=== PATIENT | male | born 1970 | race Caucasian/White ===

== ENCOUNTER 2018-02-28 14:54 | Inpatient (IN) | payer OTHER ==
[~2018-02-28] VITALS: Ht 177.8 cm; Wt 78.7 kg
--- NOTE | ~2018-02-28 | HC ---
[facility] [place] [address] CONSULTATION Name: WOJCIECH PITTS Room #: 244-P ADM IN M.R.#: [id number] Admission: 02/28/18 Attend Phys: Jaspal Ochoa MD Discharge: Date of : 72 Report #: [id number] THIS REPORT FOR: //name// CC: Jaspal Ochoa NO PCP REFERRING PHYSICIAN: Dr. Ochoa. REASON FOR REFERRAL: Cardiac arrest. HISTORY OF PRESENT ILLNESS: The patient is a 48-year-old white male who was brought to the emergency room, being found unresponsive, tachycardic. Pulmonary consultation was requested. A pulmonary consultation was called last evening. Case was discussed with nursing last evening. The patient was seen this morning. According to records, the patient was found to be in wide complex tachycardia. He was felt to be in ventricular tachycardia. Cardioversion was given by EMS. The patient was found to have a pulse. No CPR was given. He was transported to the emergency room. The patient was apparently found down. There was a gallon of water by the patient's side. No mention whether the patient had incontinence of urine or stool. The police has initially found the patient down when EMS was called. Currently, he is intubated, in normal sinus rhythm. He is requiring sedation due to restlessness and agitation. He is not alert or oriented. CT head was unremarkable. Chest x-ray shows clear lung oliver initially, then subsequently left lower lobe infiltrate, partial mild left upper lobe infiltrate. The patient was felt to have aspirated. Urine drug screen was normal. Otherwise, there are no family members. Not able to obtain much history. Therefore, past medical history, surgical history, allergies, medications, family history, and social history are unknown. Police are in the process of trying to locate family if possible. Service has also been involved. PHYSICAL EXAMINATION: GENERAL: He is now sedated. EEG has just been completed. VITAL SIGNS: Temperature initially was 107 degrees Fahrenheit. He has been cold and currently is 98.8 degrees Fahrenheit. Pulse is 80. Respiratory rate is 18. Blood pressure is 90/54 mmHg. The patient was hypotensive when he was seen in the emergency room. Saturation is 95%. HEENT: Normocephalic, atraumatic. NECK: Supple without any lymphadenopathy or thyromegaly. He is orally [address] [address] CONSULTATION Name: WOJCIECH PITTS Room #: 244-P [facility] IN M.R.#: [id number] Admission: 02/28/18 Attend Phys: Jaspal Ochoa MD Discharge: Date of : 72 Report #: [id number] intubated. CHEST: Breath sounds are clear anteriorly without any rales or wheezes. CARDIOVASCULAR: Normal S1, S2. No murmurs or gallop. There is no JVD. There is no carotid bruit. Pulses are 2+/4+ bilaterally. ABDOMEN: Soft, nontender, no organomegaly or masses felt. GENITOURINARY: Deferred. RECTAL: Deferred. EXTREMITIES: No cyanosis, clubbing, or edema. NEUROLOGIC: Initially found to be unresponsive, following resuscitation he has been quite restless and agitated, requiring sedation. He moves all extremities. LABORATORY DATA: As mentioned above. Chest x-ray shows clear lung oliver initially, now with a left lower lobe and left upper lobe infiltrates. ET tube is in appropriate position. NG tube is in appropriate position. CT head was unremarkable. Mild acute parasinusitis was noted. CT abdomen and pelvis showed marked colonic distention, fatty liver, lactic acid 2.5. Echocardiogram performed this morning showed normal ejection fraction, normal LV function, no pericardial effusion. Pulmonary pressure 35 mmHg. EKG shows no acute ischemic changes, low voltages, borderline prolonged QT interval. Electrolytes on admission showed a sodium 139, potassium 6.4, chloride 105, CO2 of 23, BUN is 20, creatinine is 2.2, this morning it is 1.6. WBC 8900, hemoglobin 14.2, platelets are normal. No evidence of bandemia. Eosinophil is mildly elevated. Troponin 0.3, CPK 1640. Arterial blood gas on admission revealed pH 7.44, pCO2 of 27, and pO2 of 164 on FiO2 100%. Urine drug screen again is negative. I do not find a serum alcohol level. IMPRESSION: 1. Apparent loss of consciousness in this 48-year-old white male with wide complex tachycardia, with subsequent ventricular tachycardia. He is febrile with a temperature of 107 degrees Fahrenheit. He was initially found unresponsive. Laboratory data shows hypokalemia with presumed acute kidney injury. Urine drug screen was negative. Initial CPK was normal at 140. Etiology is unclear, but suspect heat stroke resulting in loss of consciousness and perhaps tachycardia. This may explain his subsequent renal failure. 2. New left upper and lower lobe infiltrates. It has been confirmed the patient did vomit in the process of being evaluated in the ER. 3. Aspiration pneumonia. The patient should be treated for possible aspiration pneumonia. 4. Encephalopathy due to toxic and metabolic processes. 5. Dysrhythmias. The patient was felt to be in wide complex tachycardia with subsequent ventricular tachycardia. Please see comments below. 6. Renal insufficiency. Presume acute kidney injury; however, there is no history. Note that creatinine has improved with adequate urine output with IV fluids. 7. Hypokalemia due to renal failure, improving. 8. Hypotension, as mentioned due to above process, much improved. [facility] [address] [place] [address] CONSULTATION Name: WOJCIECH PITTS Room #: 244-P ADM IN M.R.#: [id number] Admission: 02/28/18 Attend Phys: Jaspal Ochoa MD Discharge: Date of : 72 Report #: [id number] 9. Elevated CPK, suspect some component of rhabdomyolysis. 10. Elevated troponin, related to above process with demand stress myocardium, echocardiogram being normal. Acute hypoxic respiratory failure due to above process including aspiration. RECOMMENDATION: We will continue mechanical ventilation, wean as clinical status improves. In terms of probable cardiac arrest and encephalopathy, the patient would have been a candidate for hypothermia protocol; however, according to records time has lapsed, being more than 6 hours since admission. Cardiology was consulted, but later after the patient was admitted. We would treat for presumed aspiration pneumonia with broad spectrum antibiotics, specifically to cover Gram-negative and anaerobes. DVT and GI prophylaxis recommended. Continue sedation for now given encephalopathy, restlessness and agitation. Neurology has been consulted. EEG has been performed. We will need to monitor serial CPKs, it appears to be on the rise with presumed rhabdomyolysis and renal failure. We will need to consult bilingual social worker and case management to help with identifying any family members if available. Thank you for this consultation. <ELECTRONICALLY SIGNED> By: Tomy Puri MD 03/06/18 1542 1138 MD bob Whitman
--- NOTE | ~2018-02-28 | O ---
[facility] [place] [address] OPERATIVE REPORT Name: WOJCIECH PITTS Room #: 244-P ADM IN M.R.#: [id number] Admission: 02/28/18 Attend Phys: Jaspal Ochoa MD Discharge: Date of : 72 Report #: [id number] THIS REPORT FOR: //name// CC: Jaspal Ochoa NO PCP PROCEDURE: Diagnostic bronchoscopy. CLINICAL HISTORY: A 48-year-old white male with severe pneumonia, chronic respiratory failure status post tracheostomy, now with a leak around the tracheostomy tube. A diagnostic bronchoscopy was to assess the upper airway. DESCRIPTION OF PROCEDURE: The patient was given total of 15 mL of Diprivan. He was also given Versed 2 mg IV along with fentanyl 50 mcg IV push. With adequate sedation, a flexible fiberoptic bronchoscope was then introduced through the naris. The epiglottis was normal. Vocal cords were normal. We instilled 5 mL of 1% lidocaine. The tracheostomy tube was identified in the proximal trachea. The cuff appears to be partially occluding the trachea. It is seen proximal to the tracheostomy site. The tip of the tracheal tube is in the middle of the airway, but appears in the middle of the trachea. The tracheostomy was then introduced through the tracheostomy tube. The tracheostomy tube was unremarkable. The distal trachea was normal, enrike was normal. Left main stem bronchus, left upper lobe and left lower lobe were normal. Right mainstem bronchus, right upper lobe, right middle lobe and right lower lobe was unremarkable. There were moderate dry secretions seen in the proximal trachea where the side of the tracheostomy tube was. Washing and suctioning was performed. Otherwise, the patient tolerated the procedure well, no complications. Saturation and vital signs remained in the normal range. IMPRESSION: Status post tracheostomy. There is an air leak around the tracheostomy tube while on the mechanical ventilation. Based on the bronchoscopic findings, the tracheostomy size appears to be short for the patient. RECOMMENDATIONS: The patient will benefit from a longer Shiley tracheostomy. We will reconsult surgery. [facility] [address] [place] [address] OPERATIVE REPORT Name: WOJCIECH PITTS KACI Room #: 244-P [facility] IN M.R.#: [id number] Admission: 02/28/18 Attend Phys: Jaspal Ochoa MD Discharge: Date of : 72 Report #: [id number] The findings were discussed with the patient's uncle who is the closest family relative. <ELECTRONICALLY SIGNED> By: Tomy Puri MD 03/18/18 1241 1633 [id number] Tomy Puri MD /nt
--- NOTE | ~2018-02-28 | PATH ---
[facility] [place] [address] [place] [address] PATHOLOGY RPT PROCEDURE Name: BABAR GRIFFITH Room #: 244-P [facility] IN M.R.#: [id number] Admission: 02/28/18 Date of : 72 Discharge: Report #: [id number] Path Case #: [id number] [facility] Accession Number: [id number] . 01 Material submitted: . POLYP- SIGMOID COLON POLYP . 01 Clinical history: . None provided . 02 Diagnosis: Polyp, sigmoid colon polyp, endoscopic biopsy: - Tubular adenoma. - Negative for high grade dysplasia. (IUV/db; 03/18/18) LBQ/03/18/2018 . 02 Electronically signed: . Kathleen Demarco MD, Pathologist NPI- [id number] . 01 Gross description: . Received in formalin labeled "Babar Griffith, sigmoid colon polyp," are 3 segments of burnett soft tissue measuring 1.3 x 0.8 x 0.5 cm in aggregate dimensions and ranging from 0.5 to 0.6 cm in maximum dimension. The specimen is submitted entirely in cassette A1. (TSD; 03/15/2018) TOB/TOB . 02 Pathologist provided ICD-10: D12.5 . 02 CPT . 633193 Performed at: [address], [place] [id number] MD Abdon Cheney MD Phone: [phone] Performed at: [address] [id number] MD Kathleen Demarco MD Phone: [phone]
--- NOTE | ~2018-02-28 | 2DMMODE ---
[facility] [address] [place] [address] 2 D/M-MODE ECHOCARDIOGRAM Name: HONGWOJCIECH CLEMONS Room #: 244-P ADM IN M.R.#: [id number] Admission: 02/28/18 Attend Phys: Jaspal Ochoa MD Discharge: Date of : 72 Date of Service: 03/01/18 0904 Report #: [id number] THIS REPORT FOR: //name// APPROVED REPORT Study performed: 03/01/2018 08:05:05 EXAM: Comprehensive 2D, Doppler, and color-flow Echocardiogram Patient Location: ICU Room #: [facility] Status: routine BSA: 2.07 HR: 58 bpm BP: 92/54 mmHg Other Information Study Quality: Good/Technically Difficult Technically limited study due to inability to position patient, patient unresponsive. Indications VTACH, cardiac arrest 2D Dimensions RVDd: 34.73 mm LVEF(%): 62.54 (>50%) IVSd: 10.67 (7-11mm) LVOT Diam: 20.61 (18-24mm) LVDd: 47.39 mm PWd: 11.95 (7-11mm) Ascending Ao: 33.55 (22-36mm) LVDs: 31.39 (25-40mm) Aortic Root: 28.28 mm IVC: 27.00 mm Johnson's LVEF: 62.54 % Volumes Left Atrial Volume (Systole) Single Plane 4CH: 38.30 mL Single Plane 2CH: 40.95 mL LA ESV Index: 20.00 mL/m2 Aortic Valve AoV Peak Omero.: 1.86 m/s AO Peak Gr.: 13.91 mmHg LVOT Max P.06 mmHg LVOT Max V: 1.42 m/s HAILEE Vmax: 2.54 cm2 Mitral Valve E/A Ratio: 1.6 [facility] [place] [address] 2 D/M-MODE ECHOCARDIOGRAM Name: WOJCIECH PITTS Room #: 244-P [facility] IN M.R.#: [id number] Admission: 02/28/18 Attend Phys: Jaspal Ochoa MD Discharge: Date of : 72 Date of Service: 03/01/18 0904 Report #: [id number] MV Decel. Time: 272.43 ms MV E Max Omero.: 1.10 m/s MV A Omero.: 0.68 m/s MV PHT: 79.00 ms IVRT: 65.74 ms Pulmonary Valve PV Peak Omero.: 1.47 m/s PV Peak Gr.: 8.63 mmHg Pulmonary Vein P Vein S: 0.40 m/s P Vein A: 0.27 m/s P Vein D: 0.42 m/s P Vein A Dur.: 79.6 msec P Vein S/D Ratio: 0.95 Tricuspid Valve TR Peak Omero.: 2.48 m/s RAP Estimate: 10.00 mmHg TR Peak Gr.: 24.52 mmHg PA Pressure: 35.00 mmHg Left Ventricle The left ventricle is normal size. There is normal left ventricular wall thickness. The left ventricular systolic function is normal. The left ventricular ejection fraction is within the normal range. LVEF is 55-60%. The left ventricular diastolic function is normal. Right Ventricle The right ventricle is normal size. The right ventricular systolic function is normal. Atria The left atrium size is normal. The right atrium size is normal. Aortic Valve The aortic valve is normal in structure. No aortic regurgitation is present. There is no aortic valvular stenosis. Mitral Valve The mitral valve is normal in structure. No mitral regurgitation. No evidence of mitral valve stenosis. Tricuspid Valve The tricuspid valve is normal in structure. Trace to mild tricuspid regurgitation. PAP is estimated at 35 mmHg. Pulmonic Valve [address] [address] 2 D/M-MODE ECHOCARDIOGRAM Name: WOJCIECH PITTS Room #: 244-P [facility] IN [facility].#: [id number] Admission: 02/28/18 Attend Phys: Jaspal Ochoa MD Discharge: Date of : 72 Date of Service: 03/01/18 0904 Report #: [id number] The pulmonary valve is normal in structure. Mild pulmonic regurgitation. Great Vessels The aortic root is normal in size. IVC is dilated and some collapse is visualized with normal respirations as patient is unresponsive. Pericardium There is no pericardial effusion. <Conclusion> 1. Normal echocardiogram with Doppler. EF 60% 2. Pulmonary artery pressure of 35mmHg 3. No pericardial effusion <ELECTRONICALLY SIGNED> By: Thad Nunn MD, FACC 03/01/18903 3 3 Thad Nunn MD, FACC /INF
--- NOTE | ~2018-02-28 | O ---
[facility] [place] [address] OPERATIVE REPORT Name: WOJCIECH PITTS Room #: 244-P [facility] IN M.R.#: [id number] Admission: 02/28/18 Attend Phys: Jaspal Ochoa MD Discharge: Date of : 72 Report #: [id number] THIS REPORT FOR: //name// CC: Jaspal HERNANDEZ PCP DATE OF SERVICE: 03/15/2018 PROCEDURE: Diagnostic bronchoscopy. CLINICAL HISTORY: This is a 48-year-old white male status post tracheostomy for severe bilateral pneumonia, now with trouble with secretions, possible mucus plugging and air leak. DESCRIPTION OF PROCEDURE: Bronchoscopy was performed to assess the tracheostomy tube and assess whether the tracheostomy tube is in adequate position. A disposable flexible fiberoptic bronchoscope was utilized for this bronchoscopy. Through the previously placed tracheostomy tube, the bronchoscope was then introduced without difficulty. There were moderate dry secretions seen distally in the tracheostomy tube. There were moderate dried secretions also seen at the distal of the tracheostomy tube. Otherwise, distal trachea, enrike, left main stem bronchus, left upper lobe and left lower lobe along with right main stem bronchus, right upper lobe, right middle lobe and right lower lobe were grossly unremarkable. There appears to be dried respiratory secretions stuck behind the tracheostomy tube proximally. I was not able to adequately wash and suction these dried secretions. Therefore, we will repeat the bronchoscopy with standard bronchoscope later today. Otherwise, the patient tolerated the procedure well. No sedation was used. Saline was used for washing. No complications noted. <ELECTRONICALLY SIGNED> By: Tomy Puri MD 03/18/18 1241 1327 1628 Tomy Puri MD /nt
--- NOTE | ~2018-02-28 | HC ---
[place] [address] CONSULTATION Name: WOJCIECH PITTS Room #: 244-P [facility] IN M.R.#: [id number] Admission: 02/28/18 Attend Phys: Jaspal Ochoa MD Discharge: Date of : 72 Report #: [id number] THIS REPORT FOR: //name// CC: Jaspal HERNANDEZ PCP DATE OF SERVICE: 03/04/2018 CONSULTATION: Infectious diseases. The patient is a 48-year-old white male who was found down outside. It is not clear how long he had been unconscious. EMS found that his temperature was 107. The patient had heart rhythm interpreted as ventricular tachycardia and he was given cardioversion electrotherapy. He was intubated and brought to the hospital. In the hospital, he was treated with a cooling blanket and fluids. His temperature came down to normal, but then went up to 101.9. In this setting, Infectious Disease consultation was requested. We have very limited past medical history. There is some mention in the chart about a possible history of dementia or psychiatric issues. No other medical history is available. FAMILY HISTORY AND SOCIAL HISTORY: Likewise, unavailable. REVIEW OF SYSTEMS: Unavailable. The patient is sedated on a ventilator. PHYSICAL EXAMINATION: GENERAL: The patient appears comfortable, not responsive, on propofol and a ventilator. He is in no distress. VITAL SIGNS: Max temperature after the initial environmental temperature 107 was 101.9. SKIN: Shows no rash, lesion or exanthem. The patient has some temporal wasting and is somewhat thin. ENT: Shows endotracheal and nasogastric tubes in position. HEART: Sounds S1, S2, rapid rate, regular rhythm. LUNGS: Clear to anterior auscultation. Minimal secretions. ABDOMEN: Belly is thin, soft, nontender. Roque catheter present with clear urine. EXTREMITIES: Unremarkable. LABORATORY DATA: The white count was 12.6 with 74% polys, 17% bands, 1 metamyelocyte, hemoglobin 12.1, hematocrit 35%, platelets 95,000. Electrolytes: Sodium 145, potassium 3.3, bicarbonate 26, chloride 111, BUN 14, creatinine has gone from 2.2-1.4. SGOT elevated at 187, SGPT elevated 276. Alkaline phosphatase, amylase and lipase are normal. CPK was elevated at 3168. Chest x-ray shows left lower lobe infiltrate. [address] [address] CONSULTATION Name: WOJCIECH PITTS Room #: [facility] IN M.R.#: [id number] Admission: 02/28/18 Attend Phys: Jaspal Ochoa MD Discharge: Date of : 72 Report #: [id number] In summary, a patient who was found down, hyperthermic with tachycardia, possibly ventricular tachycardia. Workup shows mild leukocytosis with a significant shift to the left. There is elevated CPK and elevated transaminases, suggesting a component of shock liver. His urine drug screen was negative. MRSA of the nares was positive. Other cultures are pending. There is evidence that there is left lower lobe infiltrate. ASSESSMENT AND PLAN: At this time, I think it is reasonable to initiate broad-spectrum antibiotic therapy pending results of further cultures and evaluation. The patient currently is on vancomycin and Zosyn. This seems appropriate. I want to do followup blood cultures, urine culture, chest x-ray. I want to check TSH, BNP. Procalcitonin. With the infiltrate, we can check urinary antigen for Streptococcus. The patient does have methicillin-resistant Staphylococcus aureus in the nares. He will need isolation and Bactroban to the nares for decolonization. If the patient does not improve virologically, we may want to consider lumbar puncture. I appreciate the opportunity of input in the care of this patient. I will be happy to follow him through the weekend until Dr. Nava returns on Sunday. Thank you for consulting us. <ELECTRONICALLY SIGNED> By: Isaac Bailey MD 03/16/18 1714 2224 0326 Isaac Bailey MD /nt
--- NOTE | ~2018-02-28 | EEG ---
[facility] [address] ELECTROENCEPHALOGRAM Name: WOJCIECH PITTS Room #: 244-P ADM IN M.R.#: [id number] Admission: 02/28/18 Attend Phys: Jaspal Ochoa MD Discharge: Date of : 72 Report #: [id number] THIS REPORT FOR: //name// CC: Jaspal Ochoa NO PCP DATE OF SERVICE: 03/01/2018 This patient is being evaluated for altered mental status. EEG was done by placing the electrodes by standard 10-20 system of electrode placement. Both referential and sequential montages were used for recording. Background activity in this patient's EEG is about 7 Hz and 30 microvolt. This is a symmetrical activity. The patient is on propofol. Photic stimulation is unremarkable. No active epileptiform activity was noticed. IMPRESSION: This patient's EEG is slow and poorly formed. That finding can be consistent with encephalopathy, but is a nonspecific finding. EEG still demonstrate reasonable activity, although it is significantly abnormal. <ELECTRONICALLY SIGNED> By: Kailash Stephens MD 03/08/18 1204 58 26 Kailash Stephens MD /nt
--- NOTE | ~2018-02-28 | P ---
[facility] [place] [address] PROCEDURE REPORT Name: WOJCIECH PITTS Room #: 244-P ADM IN M.R.#: [id number] Admission: 02/28/18 Attend Phys: Jaspal Ochoa MD Discharge: Date of : 72 Report #: [id number] THIS REPORT FOR: //name// CC: Jasapl Ochoa MD NO PCP DATE OF SERVICE: 03/15/2018 PROCEDURE PERFORMED: Colonoscopy with polypectomy. HISTORY OF PRESENT ILLNESS: The patient is a 48-year-old male who is vent dependent with a tracheostomy and PEG tube, has been anemic. The patient had an EGD performed by Dr. Noble when the PEG tube was placed recently. Plan is for colonoscopy. His hemoglobin is 8.0. Stools are Hemoccult negative times 1. DESCRIPTION OF PROCEDURE: The risks and benefits of the procedure were explained to the patient, those risks including but not limited to bleeding, perforation, and the risk of sedation. He understood these risks and gave informed consent. The procedure was performed in the ICU. Again, the patient is on a vent at this time. Conscious sedation was given using fentanyl and Versed. Next, a digital rectal exam was initially performed, which was normal. Next, using a standard Olympus colonoscope, the scope was placed in the patient's anus and advanced under direct vision to the cecum. The overall prep was somewhat poor in the cecum and ascending colon. Multiple washings and aspirations were performed. No obvious abnormalities were noted. The transverse and descending colon were normal. In the sigmoid colon, there was a 1.2 cm pedunculated polyp. This was removed by snare cautery, otherwise, negative. The rectal mucosa was normal. On retroflexion, no abnormalities were seen. The scope was then withdrawn and the procedure terminated. The patient tolerated the procedure well. IMPRESSION: 1. Sigmoid colon polyp. 2. Otherwise normal colonoscopy. RECOMMENDATIONS: 1. Continue to await biopsy results. 2. Repeat colonoscopy in 5 years. 3. Continue to monitor hemoglobin. No signs of bleeding at this time. The patient's stool is also Hemoccult negative times 1. [facility] [address] [place] [address] PROCEDURE REPORT Name: JENNIELESATHELMAWOJCIECH Room #: 244-P ADM IN M.R.#: [id number] Admission: 02/28/18 Attend Phys: Jaspal Ochoa MD Discharge: Date of : 72 Report #: [id number] Thank you for allowing me to participate in his care. <ELECTRONICALLY SIGNED> By: Rick Dale MD 03/20/18 0845 1532 0304 Rick Dale MD /nt
--- NOTE | ~2018-02-28 | HC ---
[facility] [place] [address] CONSULTATION Name: WOJCIECH PITTS Room #: 244-P ADM IN M.R.#: [id number] Admission: 02/28/18 Attend Phys: Jaspal Ochoa MD Discharge: Date of : 72 Report #: [id number] THIS REPORT FOR: //name// CC: Jaspal Ochoa NO PCP DATE OF SERVICE: 03/01/2018 HISTORY OF PRESENT ILLNESS: This is a 48-year-old male patient who is unable to provide any history. I reviewed all the patient's records in the computer and I talked to the nurses looking after this patient. I talked to the nurse looking after this patient last night and I talked to the nurse who is looking after this patient this morning. It looks like the patient was admitted with hyperthermia and symptoms suggestive of heat stroke. He is still intubated, but he is responsive, but he is not purposeful. He becomes very agitated when his propofol is decreased. He apparently did have V-tach that time, but they got the pulse back pretty soon, the best I can tell. REVIEW OF SYSTEMS: Incomplete because from the record, it looks like nobody has been able to reach anybody who is family in this patient. PAST MEDICAL HISTORY, FAMILY HISTORY AND SOCIAL HISTORY: Unknown. PHYSICAL EXAMINATION: NEUROLOGIC: Limited. It looks like he moves both sides. He does not follow any command. He does open his eyes, but that is all he does. He does not appear to have any meningeal sign, the best I can tell. His pupils are dilated. VITAL SIGNS: He is still on pressor. His blood pressure is running about 92/54. Temperature is 98.9 now, pulse is 61. LABORATORY DATA: He did have labs done, his white count was 8.7. He did have metabolic abnormalities. He did have a CT scan of the head when he came in that did not show any changes. IMPRESSION: Finding is consistent with the heat stroke. Management is as per Internal Medicine. We would like to do an EEG to see how it looks to prognosticate him. When possible, we would like to do an MRI in this patient. Otherwise, it mainly is going to be the time to see if he makes any recovery or not. Thank you very much for this referral. <ELECTRONICALLY SIGNED> By: Kailash Stephens MD 03/08/18 1214 0803 1005 Kailash Stephens MD /nt
--- NOTE | ~2018-02-28 | O ---
[facility] [place] [address] OPERATIVE REPORT Name: WOJCIECH PITTS Room #: 244-P [facility] IN M.R.#: [id number] Admission: 02/28/18 Attend Phys: Jaspal Ochoa MD Discharge: Date of : 72 Report #: [id number] THIS REPORT FOR: //name// CC: Jaspal Puri MD DATE OF SERVICE: 03/12/2018 SURGEON: Avelino Noble MD. NIGHT PATROL INSPECTOR: Carlos Coats DO. PREOPERATIVE DIAGNOSES: 1. Respiratory failure. 2. Malnutrition. 3. Hyperthermia with probable anoxic brain injury. POSTOPERATIVE DIAGNOSES: 1. Respiratory failure. 2. Malnutrition. 3. Hyperthermia with probable anoxic brain injury. PROCEDURE: 1. Size 8 Shiley tracheostomy. 2. EGD with percutaneous endoscopic gastrostomy placement (20-Faroese pull type). ANESTHESIA: General endotracheal anesthesia and local anesthetic. ESTIMATED BLOOD LOSS: 5 mL. SPECIMEN: None. COMPLICATIONS: None appreciated. INDICATIONS FOR PROCEDURE: This is a 48-year-old male patient who was found down on 02/28/2018 with a temperature of 107 degrees Fahrenheit and ventricular tachycardia. He required intubation, sedation and was placed on amiodarone. He has been unable to be weaned from the mechanical ventilator and is currently on day 12 of ventilator dependence. The patient is also protein-calorie malnourished with hypoalbuminemia. The patient presents now for tracheostomy [facility] [address] [place] [address] OPERATIVE REPORT Name: WOJCIECH PITTS Room #: 244-P [facility] IN M.R.#: [id number] Admission: 02/28/18 Attend Phys: Jaspal Ochoa MD Discharge: Date of : 72 Report #: [id number] and PEG tube placement. DESCRIPTION OF PROCEDURE IN DETAIL: After the risks, benefits and expectations of the operation were discussed in detail with the patient's durable power of block press operator (his uncle, Giorgio Stephenson), informed consent was obtained. The patient was identified in the Intensive Care Unit. He was then transferred to the operating room, and he was placed in the supine position. SCDs were placed on the patient's bilateral lower extremities and pneumatic compression was initiated. The patient was then given general anesthesia through his already existing endotracheal tube. A bite block was placed by Anesthesia. A time-out was performed to identify the correct patient and procedure. Placement of the PEG tube was undertaken first. The gastroscope was inserted into the patient's oropharynx and passed down the esophagus and into the stomach. The stomach was then insufflated with carbon dioxide and all operating room lights were turned off. Transillumination of the stomach and abdominal wall was present. There was good ballotability, and an area was chosen for placement of the gastrostomy tube. The skin was then prepped and draped in the standard sterile fashion. Local anesthetic was infiltrated into the skin and subcutaneous tissue. A small transverse skin josiane was then created. The Cook needle with catheter was then advanced into the stomach under direct visualization. The needle was withdrawn. The guidewire was then advanced into the catheter, and the catheter was withdrawn. The guidewire was snared with the scope. The guidewire was then retrieved through the patient's oropharynx by withdrawing the scope. The 20-Faroese pull type gastrostomy tube was then connected to the guidewire. The guidewire was used to advance the gastrostomy tube into the patient's stomach. The outer flange was placed. The PEG tube was located at 2 cm at the skin level. The gastroscope was readvanced into the patient's stomach to confirm good approximation of the inner flange/bumper against the gastric wall. The stomach was then decompressed, and the scope was slowly withdrawn. The tube was cut to size, and the clamp and fitting were attached. Tracheostomy was undertaken next. The patient was placed in the reverse Trendelenburg position. His neck was extended. His neck was then prepped and draped in the standard sterile fashion. The planned incision was drawn out with the skin marker between the sternocleidomastoid muscles midway between the cricoid and sternal notch. Sharp #10 blade scalpel was used to make the transverse incision. Electrocautery was then used to dissect through the subcutaneous tissue and subdermal tissue down to the platysma. The platysma was opened transversely. Bleeding points were made hemostatic while doing so. The strap muscles were then divided in the midline. The tissue was divided down to the pretracheal fascia. The second tracheal ring was identified. The trachea was scored above and below the second tracheal ring with electrocautery. The FiO2 was then decreased by Anesthesia, and the endotracheal tube cuff was deflated. A sharp #11 blade scalpel was then used to make a transverse incision [address] [address] OPERATIVE REPORT Name: WOJCIECH PITTS Room #: 244-P [facility] IN M.R.#: [id number] Admission: 02/28/18 Attend Phys: aJspal Ochoa MD Discharge: Date of : 72 Report #: [id number] above and below the second tracheal ring. The tracheal ring was divided in the midline and laterally to expose the endotracheal tube. The trach adaptive physical education teacher was then placed after the endotracheal tube was adequately withdrawn. The size 8 Shiley tracheostomy was then advanced into the trachea without difficulty. The obturator was removed and the inner cannula was placed. End tidal CO2 was obtained upon connecting the ventilator to the tracheostomy. Surgicel was placed around the tracheostomy in the subdermal tissue to ensure hemostasis. The wings of the tracheostomy were then secured to the patient's skin with interrupted 2-0 nylon sutures. A foam tracheostomy strap was placed to secure the tracheostomy furthermore. The patient tolerated the procedure well. He was returned to the Intensive Care Unit in his preoperative condition. <ELECTRONICALLY SIGNED> By: Avelino Noble MD, FACS 03/12/18 2254 1508 1544 Avelino Noble MD, FACS /nt
--- NOTE | ~2018-02-28 | EKG ---
[address] [place] [address] ELECTROCARDIOGRAM REPORT Name: WOJCIECH PITTS Room #: 244-P ADM IN M.R.#: [id number] Admission: 02/28/18 Attend Phys: Jaspal Ochoa MD Discharge: Date of : 72 Report #: [id number] THIS REPORT FOR: //name// [facility] Test Date: 2018-03-01 Test Time: 08:44:04 Pat Name: WOJCIECH PITTS Department: Room: 244 P Gender: M Parts Identification Technician: PREM : 1970 Requested By: Rodney Rondon Order Number: [id number] MD: Thad Nunn Measurements Intervals [place] Rate: 57 P: 43 DC: 179 QRS: -3 QRSD: 91 T: -8 QT: 505 QTc: 492 Interpretive Statements Sinus rhythm Low voltage, extremity leads Borderline prolonged QT interval No previous ECG available for comparison Electronically Signed On 03-01-2018 8:54:53 CDT by Thad Nunn [email or web address] <ELECTRONICALLY SIGNED> By: Thad Nunn MD, [facility] 03/01/18 0854 0844 3 Thad Nunn MD, FACC /EPI
--- NOTE | ~2018-02-28 | EKG ---
[place] [address] [address] [employer] [employer] [facility] [place] [address] ELECTROCARDIOGRAM REPORT Name: WOJCIECH PITTS Room #: 244-P ADM IN M.R.#: [id number] Admission: 02/28/18 Attend Phys: Jaspal Ochoa MD Discharge: Date of : 72 Report #: [id number] THIS REPORT FOR: //name// [facility] ED Test Date: 2018-02-28 Test Time: 15:12:08 Pat Name: WOJCIECH PITTS Department: Room: Gender: M Cyber Systems Administrator: KF : 1970 Requested By: Dominga Dias Order Number: [id number] MD: Thad Nunn Measurements Intervals [place] Rate: 130 P: 52 ME: 172 QRS: -101 QRSD: 136 T: 65 QT: 361 QTc: 531 Interpretive Statements Ventricular tachycardia No previous ECG available for comparison Electronically Signed On 03-01-2018 8:49:38 CDT by Thad Nunn [email or web address] <ELECTRONICALLY SIGNED> By: Thad Nunn MD, [facility] 03/01/18 0849 1512 1512 Thad Nunn MD, FACC /EPI
--- NOTE | ~2018-02-28 | HC ---
[facility] [place] [address] CONSULTATION Name: WOJCIECH PITTS Room #: 244-P ADM IN M.R.#: [id number] Admission: 02/28/18 Attend Phys: Jaspal Ochoa MD Discharge: Date of : 72 Report #: [id number] THIS REPORT FOR: //name// CC: Jaspal Ochoa NO PCP REASON FOR CONSULTATION: Acute kidney injury. REASON FOR PRESENTATION: Brought by EMS after being found down. HISTORY OF PRESENT ILLNESS: Those details of the history of present illness were obtained from the medical chart as the patient is currently intubated and not able to provide me with history. A 48-year-old, who was brought by the EMS, as he was found between 2 houses with a temperature of 107 reported by the EMS. He was unresponsive. He was tachycardic, initial rhythm reported to be ventricular tachycardia, I am not really sure about the details of those events. He was shocked en route and then started on amiodarone. Cooling blanket and hypothermia protocol was initiated on the patient. He was intubated. On arrival, he was found to have a temperature of 102. Creatinine was elevated at 2.2 with a potassium of 6.4 on arrival. I am not really sure about the patient's past medical history. We do not have any previous records on him. Creatinine seems to be trending down to 1.6 and his hyperkalemia had resolved. I am being consulted to manage his acute kidney injury, hyperkalemia. PAST MEDICAL HISTORY: Unable to obtain given the patient's mental status. No family around. MEDICATIONS: Unable to obtain given the patient's mental status. SOCIAL HISTORY: Unable to obtain. REVIEW OF SYSTEMS: Completely unable to obtain given the patient's mental status. ALLERGIES: Unable to assess. PHYSICAL EXAMINATION: GENERAL: He is currently intubated. Temperature is 37.1. VITAL SIGNS: Blood pressure is 92/54. HEAD AND NECK: No jugular venous distention. CHEST: Decreased air entry bilaterally, but no crackles. CARDIOVASCULAR: Regular with no rub. ABDOMEN: Soft, nontender. LOWER EXTREMITIES: No edema. [facility] [address] [place] [address] CONSULTATION Name: JENNIELESATHELMAWOJCIECH KACI Room #: 244-P [facility] IN .R.#: [id number] Admission: 02/28/18 Attend Phys: Jaspal Ochoa MD Discharge: Date of : 72 Report #: [id number] LABORATORY DATA: Reviewed. Creatinine was 2.2 yesterday and is down to 1.6. Potassium was 6.3 and it is down to 3.1. He has some low carbon dioxide at 20. Serum osmolarity is pending. CPK was 1640. UA was completely unremarkable. CT abdomen and pelvis showed marked colonic distention. Chest x-ray reviewed. ASSESSMENT, IMPRESSION AND PLAN: 1. Acute kidney injury. 2. Hyperkalemia. 3. Post potential arrest, 4. Hyperthermia. 5. Would like to obtain more about this patient's medical history. He had wide complex tachycardia and was initiated on amiodarone. His acute kidney injury no matter what seems to be improving with a creatinine trending down appropriately, his potassium has improved. He is currently intubated and his vent management are being addressed by the Pulmonary Team. Cardiology is following his rhythm issues. 6. Hyperthermia of unknown source with a slightly elevated CPK. Pursuing further information as we obtain more information about the patient and his family. <ELECTRONICALLY SIGNED> By: Olegario Vaca MD 03/03/18 1558 0842 1229 Olegario Vaca MD /nt
--- NOTE | ~2018-02-28 | EEG ---
[facility] [place] [address] ELECTROENCEPHALOGRAM Name: WOJCIECH PITTS Room #: 244-P ADM IN M.R.#: [id number] Admission: 02/28/18 Attend Phys: Jaspal Ochoa MD Discharge: Date of : 72 Report #: [id number] THIS REPORT FOR: //name// CC: Jaspal Ochoa NO PCP This patient's EEG was done by placing the electrode by standard 10-20 system of electrode placement. EEG was done because of the patient's unresponsiveness. The patient is on propofol. Background activity in this patient is about 7-8 Hz and 30 microvolt. A lot of time is slower than that and it is intermixed with theta range slowing. Photic stimulation is unremarkable. No active epileptiform activity was noticed during this record. IMPRESSION: This is an abnormal EEG, which demonstrate finding consistent with encephalopathy. Finding is nonspecific and can occur with dementia, effect of psychotropic medication, etc. Nothing to suggest any temporal lobe slowing or abnormality, which can indicate herpes encephalitis and herpes encephalitis was noticed during this examination. <ELECTRONICALLY SIGNED> By: Kailash Stephens MD 03/08/18 1204 1624 1741 Kailash Stephens MD /nt
[2018-02-28 14:56] VITALS: BP 106/48
[2018-02-28 15:25] LABS: HEMATOCRIT 41.9 % (42.0-52.0); HEMOGLOBIN 14.2 gm/dL (14.0-18.0); MCH 31.7 pg (26.0-34.0); MCV 93.1 fL (80.0-100.0); PLATELET COUNT 340 thou/uL (150-400); RDW 13.6 % (10.5-14.5); WBC 9.8 thou/uL (4.0-11.0)
[2018-02-28 15:30] LABS: BE(vivo) -3.7 mmol/L (-2 to +3); HCO3 18.8 mmol/L (22.0-26.0); PCO2 27.9 mmHg (35.0-45.0); PO2 164.8 mmHg (80.0-100.0); pH 7.447 (7.360-7.450); sO2 99.2 % (92.0-98.0)
[2018-02-28 15:35] LABS: CREATININE 2.2 mg/dL (0.7-1.3)
[2018-02-28 15:38] LABS: POTASSIUM 6.4 mmol/L (3.5-5.1)
[2018-02-28 15:43] LABS: TROPONIN-I 0.31 ng/mL (<0.06)
[2018-02-28 15:52] LABS: ATYPICAL LYMPHS 7 %; NUCLEATED RBCS 1 /100WBC
[2018-02-28 15:53] LABS: PLATELET ESTIMATE NORMAL
[2018-02-28 16:03] LABS: POC CA IONIZED 4.5 mg/dL (4.5-5.3); POC CREATININE 1.9 mg/dL (0.6-1.3); POC HEMOGLOBIN 13.9 g/dL (14.0-18.0); POC POTASSIUM 6.3 mmol/L (3.5-5.1)
[2018-02-28 16:50] LABS: URINE BILIRUBIN NEGATIVE (Negative); URINE BLOOD NEGATIVE (Negative); URINE CLARITY CLEAR; URINE COLOR YELLOW; URINE GLUCOSE-RANDOM* NEGATIVE (Negative); URINE KETONES NEGATIVE (Negative); URINE LEUKOCYTES-REFLEX NEGATIVE (Negative); URINE NITRITE-REFLEX NEGATIVE (Negative); URINE PROTEIN (DIPSTICK) NEGATIVE (Negative); URINE UROBILINOGEN 0.2 E.U./dl (0.2-1.0)
[2018-02-28 16:57] LABS: AMP/METHAMP Negative (Negative); BARBITURATES Negative (Negative); BENZODIAZEPINES Negative (Negative); COCAINE Negative (Negative); METHADONE Negative (Negative); OPIATES Negative (Negative); PCP Negative (Negative)
[2018-02-28 17:45] VITALS: BP 86/43
[2018-02-28 19:39] LABS: CALCIUM 7.7 mg/dL (8.5-10.1); CREATININE 1.9 mg/dL (0.7-1.3)
[2018-02-28 19:40] LABS: POTASSIUM 3.4 mmol/L (3.5-5.1)
[2018-03-01 04:58] LABS: BE(vivo) -7.8 mmol/L (-2 to +3); HCO3 17.2 mmol/L (22.0-26.0); PCO2 33.4 mmHg (35.0-45.0); PO2 146.7 mmHg (80.0-100.0); sO2 98.8 % (92.0-98.0)
[2018-03-01 04:59] LABS: pH 7.329 (7.360-7.450)
[2018-03-01 05:08] LABS: HEMATOCRIT 36.8 % (42.0-52.0); HEMOGLOBIN 12.7 gm/dL (14.0-18.0); MCH 32.2 pg (26.0-34.0); MCHC 34.5 g/dL (28.0-37.0); MCV 93.2 fL (80.0-100.0); RBC 3.95 mil/uL (4.50-6.00); RDW 14.1 % (10.5-14.5); WBC 8.7 thou/uL (4.0-11.0)
[2018-03-01 05:09] LABS: CALCIUM 6.6 mg/dL (8.5-10.1); CREATININE 1.6 mg/dL (0.7-1.3); POTASSIUM 3.1 mmol/L (3.5-5.1)
[2018-03-01 13:03] LABS: ALBUMIN 2.5 g/dL (3.4-5.0); DIRECT BILIRUBIN 0.1 mg/dL (<0.1-0.3); TOTAL BILIRUBIN 0.4 mg/dL (<0.1-1.0); TOTAL PROTEIN 5.2 g/dL (6.4-8.2)
[2018-03-01] MEDS ORDERED: CLARITIN10 MG PO (18:10)
[2018-03-01] MEDS ORDERED: ADVAIR HFA 230M12 GM INH (18:10)
[2018-03-01] MEDS ORDERED: PRAVACHOL40 MG PO (18:11)
[2018-03-01] MEDS ORDERED: MIRALAX17 GM PO (18:11)
[2018-03-01] MEDS ORDERED: OMEPRAZOLE40 MG PO (18:11)
[2018-03-01] MEDS ORDERED: KLONOPIN1 MG PO (18:12)
[2018-03-01] MEDS ORDERED: DEPAKOTE ER500 MG PO (18:13)
[2018-03-01] MEDS ORDERED: WELLBUTRIN SR150 MG PO (18:13)
[2018-03-01] MEDS ORDERED: BENZTROPINE MES1 MG PO (18:14)
[2018-03-01] MEDS ORDERED: RISPERDAL 1 MG T1 MG PO (18:15)
[2018-03-01] MEDS ORDERED: ZOLOFT25 MG PO (18:16)
[2018-03-01 19:00] VITALS: BP 129/71
[2018-03-01 20:00] VITALS: BP 103/52
[2018-03-01 21:00] VITALS: BP 97/48
[2018-03-01 22:00] VITALS: BP 92/51
[2018-03-01 23:00] VITALS: BP 137/84
[2018-03-02] VITALS (23 sets, daily range): BP systolic 82–137; BP diastolic 50–94
[2018-03-02 05:02] LABS: HEMATOCRIT 33.8 % (42.0-52.0); HEMOGLOBIN 11.6 gm/dL (14.0-18.0); MCH 31.7 pg (26.0-34.0); MCHC 34.3 g/dL (28.0-37.0); MCV 92.4 fL (80.0-100.0); PLATELET COUNT 82 thou/uL (150-400); RBC 3.66 mil/uL (4.50-6.00); RDW 14.2 % (10.5-14.5); WBC 15.1 thou/uL (4.0-11.0)
[2018-03-02 05:44] LABS: ALBUMIN 2.3 g/dL (3.4-5.0); CALCIUM 6.8 mg/dL (8.5-10.1); CREATININE 1.4 mg/dL (0.7-1.3); DIRECT BILIRUBIN 0.1 mg/dL (<0.1-0.3); PHOSPHORUS 2.7 mg/dL (2.5-4.9); POTASSIUM 3.3 mmol/L (3.5-5.1); TOTAL BILIRUBIN 0.4 mg/dL (<0.1-1.0); TOTAL PROTEIN 5.2 g/dL (6.4-8.2)
[2018-03-02 07:07] LABS: BE(vivo) 1.6 mmol/L (-2 to +3); HCO3 25.5 mmol/L (22.0-26.0); PCO2 37.5 mmHg (35.0-45.0); PO2 79.4 mmHg (80.0-100.0); sO2 96.3 % (92.0-98.0)
[2018-03-02 07:56] LABS: ANISOCYTOSIS 1+; METAMYELOCYTES 2 %
[2018-03-02 07:57] LABS: POLYCHROMASIA OCCASIONAL
[2018-03-02 14:34] LABS: BE(vivo) 0.4 mmol/L (-2 to +3); PCO2 35.3 mmHg (35.0-45.0); sO2 88.8 % (92.0-98.0)
[2018-03-02 14:43] LABS: PO2 52.3 mmHg (80.0-100.0)
[2018-03-02 14:53] LABS: HEMATOCRIT 35.6 % (42.0-52.0); HEMOGLOBIN 12.1 gm/dL (14.0-18.0); MCH 31.4 pg (26.0-34.0); MCV 92.2 fL (80.0-100.0); PLATELET COUNT 95 thou/uL (150-400); RBC 3.86 mil/uL (4.50-6.00); RDW 13.8 % (10.5-14.5); WBC 12.6 thou/uL (4.0-11.0)
[2018-03-02 15:25] LABS: AMYLASE 32 U/L (25-115); LIPASE 58 U/L (73-393)
[2018-03-02 15:35] LABS: ABSOLUTE NEUTROPHILS 11.5 thou/uL (1.4-8.2)
[2018-03-02 15:37] LABS: METAMYELOCYTES 1 %
[2018-03-02] MEDS ORDERED: SERTRALINE HCL50 MG PO (17:13)
[2018-03-02] MEDS ORDERED: DEPAKOTE ER500 MG PO (17:13)
[2018-03-03] VITALS (23 sets, daily range): BP systolic 95–128; BP diastolic 47–84
[2018-03-03 05:04] LABS: HEMATOCRIT 30.8 % (42.0-52.0); HEMOGLOBIN 10.6 gm/dL (14.0-18.0); MCH 31.8 pg (26.0-34.0); MCHC 34.5 g/dL (28.0-37.0); MCV 92.2 fL (80.0-100.0); PLATELET COUNT 94 thou/uL (150-400); RBC 3.34 mil/uL (4.50-6.00); RDW 13.8 % (10.5-14.5); WBC 11.8 thou/uL (4.0-11.0)
[2018-03-03 05:07] LABS: CALCIUM 6.7 mg/dL (8.5-10.1); CREATININE 1.2 mg/dL (0.7-1.3); MAGNESIUM 1.8 mg/dL (1.8-2.4); PHOSPHORUS 2.9 mg/dL (2.5-4.9); POTASSIUM 3.4 mmol/L (3.5-5.1); TOTAL BILIRUBIN 0.7 mg/dL (<0.1-1.0); TOTAL PROTEIN 5.2 g/dL (6.4-8.2)
[2018-03-03 05:21] LABS: BE(vivo) -1.7 mmol/L (-2 to +3); HCO3 22.7 mmol/L (22.0-26.0); PCO2 37.6 mmHg (35.0-45.0); PO2 105.5 mmHg (80.0-100.0); pH 7.399 (7.360-7.450); sO2 97.9 % (92.0-98.0)
[2018-03-03 05:29] LABS: APTT 41.4 Seconds (24.5-32.8); INR 1.1; PROTIME 10.9 Seconds (9.3-11.4)
[2018-03-03 06:39] LABS: METAMYELOCYTES 1 %; PLATELET ESTIMATE DECREASED
[2018-03-03 10:41] LABS: BE(vivo) 2.6 mmol/L (-2 to +3); HCO3 27.2 mmol/L (22.0-26.0); PCO2 42.1 mmHg (35.0-45.0); PO2 97.6 mmHg (80.0-100.0); pH 7.428 (7.360-7.450); sO2 97.6 % (92.0-98.0)
[2018-03-04] VITALS (10 sets, daily range): BP systolic 90–117; BP diastolic 45–65
[2018-03-04 06:33] LABS: BASOPHILS 0.6 % (0.0-2.0); EOSINOPHILS 0.8 % (0.0-3.0); HEMATOCRIT 29.7 % (42.0-52.0); HEMOGLOBIN 10.1 gm/dL (14.0-18.0); LYMPHOCYTES 7.3 % (24.0-44.0); MCH 31.8 pg (26.0-34.0); MCHC 34.1 g/dL (28.0-37.0); MCV 93.3 fL (80.0-100.0); MONOCYTES 5.9 % (1.0-8.0); PLATELET COUNT 101 thou/uL (150-400); POLYS 85.4 % (36.0-66.0); RBC 3.19 mil/uL (4.50-6.00); WBC 10.5 thou/uL (4.0-11.0)
[2018-03-04 06:45] LABS: APTT 43.6 Seconds (24.5-32.8); PROTIME 9.8 Seconds (9.3-11.4)
[2018-03-04 06:54] LABS: CALCIUM 7.4 mg/dL (8.5-10.1); POTASSIUM 3.5 mmol/L (3.5-5.1); TOTAL BILIRUBIN 0.8 mg/dL (<0.1-1.0); TOTAL PROTEIN 5.7 g/dL (6.4-8.2)
[2018-03-04 13:14] LABS: BE(vivo) -0.3 mmol/L (-2 to +3); HCO3 24.5 mmol/L (22.0-26.0); PCO2 40.6 mmHg (35.0-45.0); PO2 103.6 mmHg (80.0-100.0); pH 7.398 (7.360-7.450); sO2 97.7 % (92.0-98.0)
[2018-03-04 16:34] LABS: APTT 38.1 Seconds (24.5-32.8); PROTIME 9.6 Seconds (9.3-11.4)
[2018-03-05] VITALS (7 sets, daily range): BP systolic 109–130; BP diastolic 56–73
[2018-03-05 04:50] LABS: ALBUMIN 1.7 g/dL (3.4-5.0); CALCIUM 7.3 mg/dL (8.5-10.1); CREATININE 0.9 mg/dL (0.7-1.3); HEMATOCRIT 27.4 % (42.0-52.0); HEMOGLOBIN 9.6 gm/dL (14.0-18.0); MCH 32.4 pg (26.0-34.0); MCHC 34.9 g/dL (28.0-37.0); MCV 92.7 fL (80.0-100.0); PHOSPHORUS 2.9 mg/dL (2.5-4.9); PLATELET COUNT 136 thou/uL (150-400); RBC 2.95 mil/uL (4.50-6.00); RDW 13.8 % (10.5-14.5); WBC 8.6 thou/uL (4.0-11.0)
[2018-03-05 05:31] LABS: BE(vivo) 0.8 mmol/L (-2 to +3); HCO3 25.5 mmol/L (22.0-26.0); PCO2 40.9 mmHg (35.0-45.0); pH 7.412 (7.360-7.450); sO2 92.4 % (92.0-98.0)
[2018-03-05 06:14] LABS: HIV ANTIBODY Non Reactive (Non Reactive)
[2018-03-05 08:22] LABS: ANISOCYTOSIS SLIGHT
[2018-03-05 10:31] LABS: CALCIUM 7.4 mg/dL (8.5-10.1); CREATININE 0.8 mg/dL (0.7-1.3); MAGNESIUM 1.8 mg/dL (1.8-2.4)
[2018-03-06] VITALS (12 sets, daily range): BP systolic 110–164; BP diastolic 57–73
[2018-03-06 05:04] LABS: APTT 37.8 Seconds (24.5-32.8); CALCIUM 7.6 mg/dL (8.5-10.1); CREATININE 0.9 mg/dL (0.7-1.3); POTASSIUM 3.7 mmol/L (3.5-5.1); PROTIME 9.6 Seconds (9.3-11.4)
[2018-03-06 05:07] LABS: ABSOLUTE NEUTROPHILS 9.1 thou/uL (1.4-8.2); BASOPHILS 0.5 % (0.0-2.0); EOSINOPHILS 0.7 % (0.0-3.0); HEMATOCRIT 29.7 % (42.0-52.0); HEMOGLOBIN 10.1 gm/dL (14.0-18.0); LYMPHOCYTES 7.7 % (24.0-44.0); MCH 31.7 pg (26.0-34.0); MCV 93.1 fL (80.0-100.0); MONOCYTES 10.5 % (1.0-8.0); POLYS 80.6 % (36.0-66.0); RBC 3.19 mil/uL (4.50-6.00); RDW 13.8 % (10.5-14.5); WBC 11.3 thou/uL (4.0-11.0)
[2018-03-06 05:10] LABS: PLATELET COUNT 237 thou/uL (150-400)
[2018-03-06 06:02] LABS: FIBRINOGEN > 900 mg/dL (210-360)
[2018-03-06 07:02] LABS: BE(vivo) -1.9 mmol/L (-2 to +3); HCO3 24.5 mmol/L (22.0-26.0); PCO2 48.8 mmHg (35.0-45.0); PO2 64.1 mmHg (80.0-100.0); pH 7.318 (7.360-7.450); sO2 90.6 % (92.0-98.0)
[2018-03-06 10:05] LABS: BE(vivo) -1.6 mmol/L (-2 to +3); HCO3 25.1 mmol/L (22.0-26.0); PCO2 51.1 mmHg (35.0-45.0); PO2 68.8 mmHg (80.0-100.0); pH 7.309 (7.360-7.450)
[2018-03-06 13:30] LABS: BE(vivo) -0.5 mmol/L (-2 to +3); HCO3 25.1 mmol/L (22.0-26.0); PCO2 45.4 mmHg (35.0-45.0); PO2 70.9 mmHg (80.0-100.0); sO2 93.6 % (92.0-98.0)
[2018-03-06 15:43] LABS: PROTIME 9.7 Seconds (9.3-11.4)
[2018-03-07] VITALS (18 sets, daily range): BP systolic 120–157; BP diastolic 58–76
[2018-03-07 10:32] LABS: HEMATOCRIT 30.6 % (42.0-52.0); HEMOGLOBIN 10.4 gm/dL (14.0-18.0); MCH 31.3 pg (26.0-34.0); MCHC 33.8 g/dL (28.0-37.0); MCV 92.8 fL (80.0-100.0); RBC 3.3 mil/uL (4.50-6.00); RDW 13.7 % (10.5-14.5); WBC 14.6 thou/uL (4.0-11.0)
[2018-03-07 10:44] LABS: APTT 40.1 Seconds (24.5-32.8); PROTIME 9.6 Seconds (9.3-11.4)
[2018-03-07 11:01] LABS: ALBUMIN 1.5 g/dL (3.4-5.0); CALCIUM 8.4 mg/dL (8.5-10.1); CREATININE 0.7 mg/dL (0.7-1.3); DIRECT BILIRUBIN 3.1 mg/dL (<0.1-0.3); TOTAL BILIRUBIN 3.3 mg/dL (<0.1-1.0); TOTAL PROTEIN 6.2 g/dL (6.4-8.2)
[2018-03-07 16:28] LABS: BE(vivo) 4.9 mmol/L (-2 to +3); HCO3 32.5 mmol/L (22.0-26.0); PCO2 64.9 mmHg (35.0-45.0); PO2 73.5 mmHg (80.0-100.0); sO2 93.1 % (92.0-98.0)
[2018-03-07 16:29] LABS: pH 7.317 (7.360-7.450)
[2018-03-08] VITALS (18 sets, daily range): BP systolic 132–172; BP diastolic 63–84
[2018-03-08 05:31] LABS: HEMATOCRIT 28.9 % (42.0-52.0); HEMOGLOBIN 9.8 gm/dL (14.0-18.0); MCH 31.8 pg (26.0-34.0); MCHC 34.1 g/dL (28.0-37.0); MCV 93.2 fL (80.0-100.0); RBC 3.1 mil/uL (4.50-6.00); RDW 13.8 % (10.5-14.5); WBC 15.4 thou/uL (4.0-11.0)
[2018-03-08 05:37] LABS: PROTIME 9.6 Seconds (9.3-11.4)
[2018-03-08 05:42] LABS: ALBUMIN 1.5 g/dL (3.4-5.0); CALCIUM 8.4 mg/dL (8.5-10.1); CREATININE 0.8 mg/dL (0.7-1.3); DIRECT BILIRUBIN 3.7 mg/dL (<0.1-0.3); TOTAL BILIRUBIN 4.1 mg/dL (<0.1-1.0); TOTAL PROTEIN 6.2 g/dL (6.4-8.2)
[2018-03-08 11:03] LABS: BE(vivo) 6.6 mmol/L (-2 to +3); HCO3 33.1 mmol/L (22.0-26.0); PCO2 58.6 mmHg (35.0-45.0); sO2 92.3 % (92.0-98.0)
[2018-03-08 15:02] LABS: VOLUME 11 ml
[2018-03-08 15:11] LABS: CSF GLUCOSE 89 mg/dL (40-70); CSF PROTEIN 36 mg/dL (15-45)
[2018-03-08 16:18] LABS: CSF EOSINOPHILS 0 %; CSF LYMPHOCYTES 52 %; CSF MONONUCLEARS 0 %; CSF POLYS 48 %
[2018-03-09] VITALS (9 sets, daily range): BP systolic 104–148; BP diastolic 58–78
[2018-03-09 06:07] LABS: HEMATOCRIT 26.8 % (42.0-52.0); HEMOGLOBIN 9.1 gm/dL (14.0-18.0); MCH 31.7 pg (26.0-34.0); MCHC 33.9 g/dL (28.0-37.0); MCV 93.4 fL (80.0-100.0); RBC 2.87 mil/uL (4.50-6.00); RDW 13.7 % (10.5-14.5); WBC 14.1 thou/uL (4.0-11.0)
[2018-03-09 06:28] LABS: ALBUMIN 1.6 g/dL (3.4-5.0); CALCIUM 8.5 mg/dL (8.5-10.1); CREATININE 0.6 mg/dL (0.7-1.3); POTASSIUM 3.5 mmol/L (3.5-5.1); TOTAL BILIRUBIN 2.6 mg/dL (<0.1-1.0); TOTAL PROTEIN 6.1 g/dL (6.4-8.2)
[2018-03-10] VITALS (11 sets, daily range): BP systolic 110–169; BP diastolic 57–94
[2018-03-10 05:26] LABS: HEMOGLOBIN 7.8 gm/dL (14.0-18.0); MCH 31.6 pg (26.0-34.0); MCHC 33.8 g/dL (28.0-37.0); MCV 93.6 fL (80.0-100.0); RBC 2.46 mil/uL (4.50-6.00); RDW 13.8 % (10.5-14.5); WBC 11.6 thou/uL (4.0-11.0)
[2018-03-10 05:31] LABS: ALBUMIN 1.5 g/dL (3.4-5.0); CALCIUM 8.3 mg/dL (8.5-10.1); CREATININE 0.6 mg/dL (0.7-1.3); POTASSIUM 3.7 mmol/L (3.5-5.1); TOTAL BILIRUBIN 1.2 mg/dL (<0.1-1.0); TOTAL PROTEIN 5.6 g/dL (6.4-8.2)
[2018-03-10 05:37] LABS: BE(vivo) 9.5 mmol/L (-2 to +3); HCO3 35.5 mmol/L (22.0-26.0); PCO2 56.7 mmHg (35.0-45.0); PO2 103.6 mmHg (80.0-100.0); pH 7.414 (7.360-7.450); sO2 97.7 % (92.0-98.0)
[2018-03-11] VITALS (21 sets, daily range): BP systolic 101–160; BP diastolic 45–82
[2018-03-11 04:40] LABS: HEMATOCRIT 24.9 % (42.0-52.0); HEMOGLOBIN 8.5 gm/dL (14.0-18.0); MCH 31.7 pg (26.0-34.0); MCHC 34.1 g/dL (28.0-37.0); RBC 2.68 mil/uL (4.50-6.00); RDW 13.6 % (10.5-14.5); WBC 11.9 thou/uL (4.0-11.0)
[2018-03-11 04:45] LABS: CALCIUM 7.8 mg/dL (8.5-10.1); CREATININE 0.6 mg/dL (0.7-1.3); POTASSIUM 3.1 mmol/L (3.5-5.1)
[2018-03-11 05:58] LABS: BE(vivo) 10.7 mmol/L (-2 to +3); HCO3 35.9 mmol/L (22.0-26.0); PCO2 52.2 mmHg (35.0-45.0); PO2 97.6 mmHg (80.0-100.0); pH 7.455 (7.360-7.450); sO2 97.6 % (92.0-98.0)
[2018-03-11 18:09] LABS: HSV 1 DNA Negative (Negative); HSV 2 DNA Negative (Negative)
[2018-03-12] VITALS (25 sets, daily range): BP systolic 90–141; BP diastolic 50–79
[2018-03-12 05:09] LABS: CALCIUM 7.8 mg/dL (8.5-10.1); CREATININE 0.5 mg/dL (0.7-1.3); POTASSIUM 3.4 mmol/L (3.5-5.1)
[2018-03-12 05:10] LABS: HEMATOCRIT 21.4 % (42.0-52.0); HEMOGLOBIN 7.5 gm/dL (14.0-18.0); MCH 32.3 pg (26.0-34.0); MCHC 34.9 g/dL (28.0-37.0); MCV 92.6 fL (80.0-100.0); RBC 2.31 mil/uL (4.50-6.00); RDW 13.6 % (10.5-14.5)
[2018-03-12 09:33] LABS: HSV PCR SOURCE CSF
[2018-03-13] VITALS (22 sets, daily range): BP systolic 97–132; BP diastolic 48–72
[2018-03-13 04:21] LABS: BE(vivo) 9.5 mmol/L (-2 to +3); PCO2 40.5 mmHg (35.0-45.0); PO2 77.6 mmHg (80.0-100.0); pH 7.529 (7.360-7.450); sO2 96.6 % (92.0-98.0)
[2018-03-13 05:11] LABS: HEMATOCRIT 21.2 % (42.0-52.0); HEMOGLOBIN 7.4 gm/dL (14.0-18.0); MCH 32.8 pg (26.0-34.0); MCHC 35.1 g/dL (28.0-37.0); MCV 93.4 fL (80.0-100.0); RBC 2.27 mil/uL (4.50-6.00); RDW 13.3 % (10.5-14.5); WBC 10.3 thou/uL (4.0-11.0)
[2018-03-13 05:22] LABS: CREATININE 0.5 mg/dL (0.7-1.3); POTASSIUM 3.5 mmol/L (3.5-5.1)
[2018-03-13 05:26] LABS: ALBUMIN 1.9 g/dL (3.4-5.0); DIRECT BILIRUBIN 0.4 mg/dL (<0.1-0.3); TOTAL BILIRUBIN 0.6 mg/dL (<0.1-1.0); TOTAL PROTEIN 5.9 g/dL (6.4-8.2)
[2018-03-13 09:54] LABS: % SATURATION 10 % (20-39); IRON 17 ug/dL (65-175); TIBC 169 ug/dL (250-450)
[2018-03-14] VITALS (22 sets, daily range): BP systolic 113–164; BP diastolic 62–90
[2018-03-14 04:40] LABS: HEMATOCRIT 22.2 % (42.0-52.0); HEMOGLOBIN 7.7 gm/dL (14.0-18.0); MCH 32.6 pg (26.0-34.0); MCHC 34.8 g/dL (28.0-37.0); MCV 93.7 fL (80.0-100.0); RBC 2.37 mil/uL (4.50-6.00); RDW 13.2 % (10.5-14.5); WBC 10.9 thou/uL (4.0-11.0)
[2018-03-14 04:41] LABS: CALCIUM 7.7 mg/dL (8.5-10.1); CREATININE 0.5 mg/dL (0.7-1.3); POTASSIUM 3.4 mmol/L (3.5-5.1)
[2018-03-15] VITALS (22 sets, daily range): BP systolic 144–185; BP diastolic 69–106
[2018-03-15 05:45] LABS: CALCIUM 7.6 mg/dL (8.5-10.1); CREATININE 0.6 mg/dL (0.7-1.3); POTASSIUM 3.6 mmol/L (3.5-5.1)
[2018-03-15 06:04] LABS: HEMATOCRIT 24.1 % (42.0-52.0); MCH 31.4 pg (26.0-34.0); MCHC 33.2 g/dL (28.0-37.0); MCV 94.6 fL (80.0-100.0); RBC 2.54 mil/uL (4.50-6.00); RDW 13.2 % (10.5-14.5); WBC 12.1 thou/uL (4.0-11.0)
[2018-03-15 10:26] LABS: BE(vivo) 5.8 mmol/L (-2 to +3); HCO3 29.6 mmol/L (22.0-26.0); PCO2 39.9 mmHg (35.0-45.0); PO2 88.2 mmHg (80.0-100.0); pH 7.488 (7.360-7.450); sO2 97.3 % (92.0-98.0)
[2018-03-16] VITALS (21 sets, daily range): BP systolic 125–178; BP diastolic 68–93
[2018-03-16 06:19] LABS: HEMATOCRIT 27.9 % (42.0-52.0); HEMOGLOBIN 9.5 gm/dL (14.0-18.0); MCH 31.2 pg (26.0-34.0); MCHC 33.9 g/dL (28.0-37.0); MCV 92.2 fL (80.0-100.0); RBC 3.03 mil/uL (4.50-6.00); WBC 13.9 thou/uL (4.0-11.0)
[2018-03-16 06:27] LABS: CALCIUM 8.5 mg/dL (8.5-10.1); CREATININE 0.6 mg/dL (0.7-1.3); POTASSIUM 3.3 mmol/L (3.5-5.1)
[2018-03-16 10:31] LABS: BE(vivo) 4.3 mmol/L (-2 to +3); HCO3 27.8 mmol/L (22.0-26.0); PCO2 37.5 mmHg (35.0-45.0); PO2 76.6 mmHg (80.0-100.0); pH 7.488 (7.360-7.450); sO2 96.2 % (92.0-98.0)
[2018-03-17] VITALS (22 sets, daily range): BP systolic 101–153; BP diastolic 53–103
[2018-03-17 06:23] LABS: RBC 2.79 mil/uL (4.50-6.00); WBC 13.8 thou/uL (4.0-11.0)
[2018-03-17 06:24] LABS: HEMOGLOBIN 8.7 gm/dL (14.0-18.0); MCH 31.2 pg (26.0-34.0); MCHC 33.5 g/dL (28.0-37.0); RDW 13.5 % (10.5-14.5)
[2018-03-17 06:33] LABS: CALCIUM 8.5 mg/dL (8.5-10.1); CREATININE 0.6 mg/dL (0.7-1.3); POTASSIUM 3.8 mmol/L (3.5-5.1)
[2018-03-18] VITALS (19 sets, daily range): BP systolic 111–167; BP diastolic 59–94
[2018-03-18 05:50] LABS: CALCIUM 8.4 mg/dL (8.5-10.1); CREATININE 0.6 mg/dL (0.7-1.3); POTASSIUM 3.4 mmol/L (3.5-5.1)
[2018-03-18 05:54] LABS: HEMATOCRIT 26.4 % (42.0-52.0); MCH 31.8 pg (26.0-34.0); MCV 93.7 fL (80.0-100.0); RBC 2.82 mil/uL (4.50-6.00); RDW 13.4 % (10.5-14.5); WBC 13.7 thou/uL (4.0-11.0)
[2018-03-19] VITALS (22 sets, daily range): BP systolic 87–164; BP diastolic 44–92
[2018-03-19 05:13] LABS: HEMOGLOBIN 9.2 gm/dL (14.0-18.0); WBC 13.3 thou/uL (4.0-11.0)
[2018-03-19 05:14] LABS: CALCIUM 8.5 mg/dL (8.5-10.1); CREATININE 0.6 mg/dL (0.7-1.3); HEMATOCRIT 26.9 % (42.0-52.0); MCH 32.1 pg (26.0-34.0); MCHC 34.3 g/dL (28.0-37.0); MCV 93.7 fL (80.0-100.0); POTASSIUM 3.8 mmol/L (3.5-5.1); RBC 2.87 mil/uL (4.50-6.00); RDW 13.7 % (10.5-14.5)
[2018-03-20] VITALS (17 sets, daily range): BP systolic 105–146; BP diastolic 61–106
[2018-03-20 05:35] LABS: BE(vivo) 5.7 mmol/L (-2 to +3); HCO3 30.2 mmol/L (22.0-26.0); PCO2 43.7 mmHg (35.0-45.0); PO2 105.3 mmHg (80.0-100.0); pH 7.457 (7.360-7.450)
[2018-03-20 05:50] LABS: HEMATOCRIT 28.9 % (42.0-52.0); MCHC 34.4 g/dL (28.0-37.0); RBC 3.11 mil/uL (4.50-6.00); RDW 13.6 % (10.5-14.5); WBC 11.3 thou/uL (4.0-11.0)
[2018-03-20 05:59] LABS: CALCIUM 8.3 mg/dL (8.5-10.1); CREATININE 0.6 mg/dL (0.7-1.3); POTASSIUM 3.6 mmol/L (3.5-5.1)
[2018-03-20] MEDS ORDERED: CEFTRIAXON1 GM/50 ML IV (11:58)
[2018-03-20] MEDS ORDERED: VANCO 1 GR1 GM/250 M IVPB (11:58)
[2018-03-20] MEDS ORDERED: DEPACON 50500 MG/51 IV (15:22)
== END 2018-03-20 16:00 | DRG 4 ==
LOC: EDBD 14:54 → ER 14:54 → EROBS 16:55 → ICU 16:55
PROVIDERS: Emergency Medicine; Hospitalist; Internal Medicine; Internal Medicine Gastroenterology; Internal Medicine Pulmonary Disease; Nurse Practitioner; Psychiatry & Neurology Neuromuscular Medicine; Specialist
PROC: 0BH17EZ Insertion of Endotracheal Airway into Trachea, Via Natural or Artificial Opening (ICD-10-PCS; principal; 2018-02-28)
PROC: 5A1955Z Respiratory Ventilation, Greater than 96 Consecutive Hours (ICD-10-PCS; principal; 2018-02-28)
PROC: 4A00X4Z Measurement of Central Nervous Electrical Activity, External Approach (ICD-10-PCS; 2018-03-01)
PROC: B01B1ZZ Fluoroscopy of Spinal Cord using Low Osmolar Contrast (ICD-10-PCS; 2018-03-08)
PROC: 009U3ZX Drainage of Spinal Canal, Percutaneous Approach, Diagnostic (ICD-10-PCS; 2018-03-08)
PROC: B244YZZ Ultrasonography of Right Heart using Other Contrast (ICD-10-PCS; 2018-03-09)
PROC: 02H633Z Insertion of Infusion Device into Right Atrium, Percutaneous Approach (ICD-10-PCS; 2018-03-09)
PROC: 0B110F4 Bypass Trachea to Cutaneous with Tracheostomy Device, Open Approach (ICD-10-PCS; 2018-03-12)
PROC: 0DH63UZ Insertion of Feeding Device into Stomach, Percutaneous Approach (ICD-10-PCS; 2018-03-12)
PROC: 5A1955Z Respiratory Ventilation, Greater than 96 Consecutive Hours (ICD-10-PCS; 2018-03-12)
PROC: 0BJ08ZZ Inspection of Tracheobronchial Tree, Via Natural or Artificial Opening Endoscopic (ICD-10-PCS; 2018-03-15)
PROC: 0DBN8ZZ Excision of Sigmoid Colon, Via Natural or Artificial Opening Endoscopic (ICD-10-PCS; 2018-03-15)
PROC: 0B21XFZ Change Tracheostomy Device in Trachea, External Approach (ICD-10-PCS; 2018-03-19)
DX: A41.9 Sepsis, unspecified organism (principal); J69.0 Pneumonitis due to inhalation of food and vomit; G92 Toxic encephalopathy; J96.01 Acute respiratory failure with hypoxia; I46.9 Cardiac arrest, cause unspecified; K72.00 Acute and subacute hepatic failure without coma; J15.212 Pneumonia due to Methicillin resistant Staphylococcus aureus; E43 Unspecified severe protein-calorie malnutrition; J15.0 Pneumonia due to Klebsiella pneumoniae; K83.1 Obstruction of bile duct; J96.02 Acute respiratory failure with hypercapnia; T67.0XXA Heatstroke and sunstroke, initial encounter; N17.9 Acute kidney failure, unspecified; I47.2 Ventricular tachycardia; E87.2 Acidosis; M62.82 Rhabdomyolysis; E87.5 Hyperkalemia; E87.6 Hypokalemia; I49.9 Cardiac arrhythmia, unspecified; I95.9 Hypotension, unspecified; K76.0 Fatty (change of) liver, not elsewhere classified; R65.20 Severe sepsis without septic shock; F41.9 Anxiety disorder, unspecified; D47.3 Essential (hemorrhagic) thrombocythemia; D50.9 Iron deficiency anemia, unspecified; J32.9 Chronic sinusitis, unspecified; F31.9 Bipolar disorder, unspecified; D12.5 Benign neoplasm of sigmoid colon; X58.XXXA Exposure to other specified factors, initial encounter; Z68.24 Body mass index [BMI] 24.0-24.9, adult; Y93.89 Activity, other specified; Y92.89 Other specified places as the place of occurrence of the external cause; Y99.8 Other external cause status; Z88.2 Allergy status to sulfonamides
CPT/HCPCS: 10203; 27000; 50101; 50386; 50403; 50517; 56525; 56639; 62110; 62900